=== PATIENT | female | born 1965 | race Caucasian/White ===

== ENCOUNTER 2021-12-04 18:51 | Inpatient (IN) ==
[2021-12-04 19:35] LABS: ABS Eosinophils 0.3 10^3/ul (0-0.6); ABS Lymphocytes 2.3 10^3/ul (1.0-4.8); ABS Monocytes 0.6 10^3/ul (0-0.8); Eosinophil % 3.8 %; Hematocrit 39 % (35-47); Hemoglobin 13.3 g/dL (12.0-16.0); Lymphocyte % 31.9 %; Mean Corpuscular HGB Conc 34 g/dL (31-36); Mean Corpuscular Hemoglobin 32 pg (27-31); Mean Corpuscular Volume 94 fL (80-97); Mean Platelet Volume 8.6 fL (7.4-10.4); Nucleated Red Blood Cells % 0.1; Platelet Count 302 10^3/uL (150-450); Red Blood Count 4.17 10^6 /uL (3.70-4.87); Red Cell Distribution Width 14 % (10-15); White Blood Count 7.1 10^3/uL (3.5-10.8)
[2021-12-04 19:41] LABS: INR 1.07 (0.86-1.15)
[2021-12-04 19:58] LABS: Albumin 4.5 g/dL (3.2-5.2); Albumin/Globulin Ratio 1.7 (1-3); Globulin 2.7 g/dL (2-4); Potassium 4.3 mmol/L (3.5-5.0); Total Bilirubin 0.3 mg/dL (0.2-1.0); Total Protein 7.2 g/dL (6.4-8.9); eGFR CKD-EPI 65.7 (>60)
[2021-12-04 21:20] LABS: High Sensitivity Troponin 1 Hr 169 pg/mL (<15)
[2021-12-04] MEDS ORDERED: Heparin DRIP 25,000 UNITS BAG 25,000 UNITS/500 ML BAG IV SCH (23:00)
[2021-12-04] MEDS ORDERED: Heparin 5000 UNITS/ML 1 mL VIAL IV SCH (23:00)
[2021-12-04 23:42] LABS: eGFR CKD-EPI 69.9 (>60)
[2021-12-05 05:38] LABS: ABS Basophils 0.1 10^3/ul (0-0.2); ABS Eosinophils 0.3 10^3/ul (0-0.6); ABS Lymphocytes 2.4 10^3/ul (1.0-4.8); ABS Monocytes 0.7 10^3/ul (0-0.8); ABS Neutrophils 4.3 10^3/ul (1.5-7.7); Hematocrit 40 % (35-47); Hemoglobin 13.3 g/dL (12.0-16.0); Lymphocyte % 31.3 %; Mean Corpuscular HGB Conc 34 g/dL (31-36); Mean Corpuscular Hemoglobin 31 pg (27-31); Mean Corpuscular Volume 93 fL (80-97); Platelet Count 259 10^3/uL (150-450); Red Blood Count 4.27 10^6 /uL (3.70-4.87); Red Cell Distribution Width 14 % (10-15); White Blood Count 7.8 10^3/uL (3.5-10.8)
[2021-12-05 05:59] LABS: Blood Urea Nitrogen 23 mg/dL (6-24); CO2 Carbon Dioxide 24 mmol/L (22-32); Calcium 8.8 mg/dL (8.6-10.3); Chloride 108 mmol/L (101-111); Cholesterol 201 mg/dL; Glucose 87 mg/dL (70-100); HDL Cholesterol 58.7 mg/dL; LDL Cholesterol 130 mg/dL; Sodium 139 mmol/L (135-145); Triglycerides 61 mg/dL
[2021-12-05 06:02] LABS: Anion Gap 7 mmol/L (2-11)
[2021-12-05] MEDS: Aspirin EC 81 mg TAB.EC (enteric coated) PO SCH (08:02)
[2021-12-05] MEDS ORDERED: NS 0.9% 1000 ml BAG 1,000 ML IV SCH (09:45)
[2021-12-05] MEDS ORDERED: Midazolam 5 mg/5 ml VIAL 1 mg/ml 5 ml VIAL (5 mg) ONE (13:02)
[2021-12-05] MEDS ORDERED: fentaNYL 100 mcg/2 ml 50 MCG/ML VIAL ONE (13:02)
[2021-12-05] MEDS ORDERED: nitroGLYCERIN DRIP 25,000 MCG/250 ML BTL ONE (13:03)
[2021-12-05] MEDS ORDERED: Heparin 2 UNITS/ML 1000 mls 2,000 ML IV ONE (13:03)
[2021-12-05] MEDS ORDERED: Heparin 1,000 UNIT/ML 10 ml (10,000 UNITS) CATHLAB/DIALYSIS ONE (13:03)
[2021-12-05] MEDS ORDERED: Lidocaine 1% MPF 5 ML VIAL ONE (13:04)
[2021-12-05] MEDS ORDERED: niCARdipine 0.1MG/ML IVPREMIX 20 MG/200 ML BAG IV ONE (13:04)
[2021-12-05] MEDS ORDERED: Iohexol 350 (CONTRAST) 200 ML MDV IV ONE ×2 (13:04)
[2021-12-06 05:20] LABS: Calcium 8.7 mg/dL (8.6-10.3); Chloride 107 mmol/L (101-111); Sodium 136 mmol/L (135-145)
[2021-12-06 05:25] LABS: Blood Urea Nitrogen 18 mg/dL (6-24); C Reactive Protein 7.87 mg/L (<8.01); Creatine Kinase 123 U/L (10-223); Glucose 95 mg/dL (70-100); eGFR CKD-EPI 103.9 (>60)
[2021-12-06 05:32] LABS: CO2 Carbon Dioxide 22 mmol/L (22-32)
[2021-12-06 05:40] LABS: Anion Gap 7 mmol/L (2-11)
[2021-12-06 05:57] LABS: CKMB ng/mL 0.8 ng/mL (0.6-6.3)
[2021-12-06 06:08] LABS: TSH Ultra Thyroid Stim Horm 5.73 mcIU/mL (0.34-5.60)
[2021-12-06 08:00] LABS: Potassium Redraw 4.6 mmol/L (3.5-5.0)
[2021-12-06] MEDS: Aspirin EC 81 mg TAB.EC (enteric coated) PO SCH (09:18)
[2021-12-06 09:44] LABS: Free T4 0.8 ng/dL (0.61-1.12)
[2021-12-06 13:11] VITALS: BP 102/54
== END 2021-12-06 16:20 | disposition home or self-care (01) | DRG 282 ==
LOC: ED 18:51 → EDHOLD 12-05 00:27 → SUATTDRO 12-05 00:27 → MEDTELE 12-05 01:34
PROVIDERS: ADMIT Hospitalist; ATTEND Internal Medicine

== ENCOUNTER 2024-01-13 14:13 | Observation (INO) ==
[2024-01-13 14:40] LABS: ABS Eosinophils 0.3 10^3/uL (0.0-0.5); ABS Lymphocytes 2.6 10^3/uL (1.0-4.8); ABS Monocytes 0.8 10^3/uL (0.0-0.9); ABS Neutrophils 5.7 10^3/uL (1.5-7.6); ABS Nucleated RBC 0.01 10^3/ul; Eosinophil % 2.8 %; Hematocrit 36.5 % (35-45); Hemoglobin 12.3 g/dL (11.5-14.3); Lymphocyte % 27.7 %; Mean Corpuscular Hemoglobin 31.4 pg (27-33); Mean Corpuscular Hgb Conc 33.7 g/dL (31-36); Mean Corpuscular Volume 93.4 fL (80-97); Mean Platelet Volume 8.3 fL (7.5-11.2); Nucleated Red Blood Cells % 0.1 %/100WBC (0.0-0.8); Platelet Count 302 10^3/uL (150-450); Red Blood Count 3.91 10^6/uL (3.63-4.92); Red Cell Distribution Width 13.2 % (12-17); White Blood Count 9.5 10^3/uL (3.8-11.8)
[2024-01-13 14:56] LABS: Activated Partial Thrombo Time 38.1 seconds (26.0-38.0); INR 0.98 (0.83-1.13)
[2024-01-13 15:12] LABS: Albumin 4.6 g/dL (3.2-5.2); Albumin/Globulin Ratio 1.4 (1-3); Calcium 9.3 mg/dL (8.6-10.3); Creatinine, Serum 1.11 mg/dL (0.51-0.95); Globulin 3.2 g/dL (2-4); Indirect Bilirubin 0.3 mg/dL (0.3-1.0); Potassium 4.2 mmol/L (3.5-5.0); Total Bilirubin 0.3 mg/dL (0.2-1.0); Total Protein 7.8 g/dL (6.4-8.9)
[2024-01-13 15:21] LABS: Urine Appearance Turbid; Urine Bilirubin Negative (Negative); Urine Blood Trace (Negative); Urine Color Light-Yellow; Urine Glucose Negative (Negative); Urine Ketones Negative (Negative); Urine Nitrite Negative (Negative); Urine Protein Negative (Negative); Urine Specific Gravity 1.038 (1.002-1.030); Urine Urobilinogen Negative (Negative); Urine pH 6.5 (5.0-8.0)
[2024-01-13 15:34] LABS: Urine Bacteria 1+ /HPF (Absent); Urine Red Blood Cell 3+(>10/hpf) /HPF (0-Trace); Urine Squamous Epithelial Cell Present /HPF (Absent); Urine Transitional Epithelial Present /HPF (Absent); Urine White Blood Cell 3+(>20/hpf) /HPF (0-Trace)
[2024-01-13] MEDS: Enoxaparin 40 MG/0.4 ML SYR SUBCUT SCH (19:46)
[2024-01-14 05:14] LABS: ABS Eosinophils 0.2 10^3/uL (0.0-0.5); ABS Lymphocytes 2.4 10^3/uL (1.0-4.8); ABS Monocytes 0.8 10^3/uL (0.0-0.9); ABS Neutrophils 4.5 10^3/uL (1.5-7.6); ABS Nucleated RBC 0.01 10^3/ul; Eosinophil % 3.1 %; Hematocrit 34.4 % (35-45); Hemoglobin 11.7 g/dL (11.5-14.3); Lymphocyte % 29.6 %; Mean Corpuscular Hemoglobin 31.5 pg (27-33); Mean Corpuscular Volume 92.7 fL (80-97); Mean Platelet Volume 8.4 fL (7.5-11.2); Nucleated Red Blood Cells % 0.1 %/100WBC (0.0-0.8); Platelet Count 264 10^3/uL (150-450); Red Blood Count 3.71 10^6/uL (3.63-4.92); Red Cell Distribution Width 13.5 % (12-17)
[2024-01-14 05:35] LABS: Calcium 8.7 mg/dL (8.6-10.3); Creatinine, Serum 1.06 mg/dL (0.51-0.95); Potassium 3.9 mmol/L (3.5-5.0); eGFR CKD-EPI 61.3 (>60)
[2024-01-14] MEDS ORDERED: Sulfur Hexaflouride MICROSPHR 25 MG VIAL ONE (09:19)
[2024-01-14] MEDS: Aspirin EC 81 mg TAB.EC (enteric coated) PO SCH (09:25)
[2024-01-14 10:12] VITALS: BP 118/71
== END 2024-01-14 14:00 ==
LOC: EDHOLD 14:13 → ED 14:13 → MEDTELE 17:58
PROVIDERS: ADMIT Student in an Organized Health Care Education/Training Program; ATTEND Student in an Organized Health Care Education/Training Program